=== PATIENT | female | born 2000 | race Hispanic/Latino ===

== ENCOUNTER → 2023-10-17 11:26 | Outpatient (REF) | payer OTHER, SELFPAY ==
[2023-10-17 16:46] LABS: Iron 47 ug/dl (37-170)
[2023-10-17 16:55] LABS: Percent Saturation 11 % (20-50); Total Iron Binding Capacity 426 ug/dl (265-497)
[2023-10-17 17:19] LABS: Ferritin 7.6 ng/ml (6.24-137)
== END ==
LOC: HWLAB 11:26
PROVIDERS: ATTENDING PHYSICIAN Internal Medicine Hematology & Oncology; FAMILY PHYSICIAN Pediatrics
DX: O99.019 Anemia complicating pregnancy, unspecified trimester (principal); D50.9 Iron deficiency anemia, unspecified; D51.9 Vitamin B12 deficiency anemia, unspecified; I82.4Z2 Acute embolism and thrombosis of unspecified deep veins of left distal lower extremity; D68.52 Prothrombin gene mutation
CPT/HCPCS: 36415; 82728; 83540; 83550

== ENCOUNTER 2023-11-07 21:35 | Emergency (ER) | payer OTHER, SELFPAY ==
[2023-11-07 21:38] VITALS: BP 121/84
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
[2023-11-07] MEDS: CITROMA 300 ML PO (23:14)
[2023-11-07] MEDS: MINERAL OIL 30 ML PO (23:14)
[2023-11-07 23:22] VITALS: BMI 23.8
[2023-11-08 05:14] VITALS: BP 105/54
== END 2023-11-08 05:27 | disposition home or self-care (01) ==
LOC: EMR 21:35
PROVIDERS: EMERGENCY PHYSICIAN Emergency Medicine
DX: K59.00 Constipation, unspecified (principal); R10.9 Unspecified abdominal pain; K58.9 Irritable bowel syndrome, unspecified; F41.9 Anxiety disorder, unspecified; F32.A Depression, unspecified; F43.10 Post-traumatic stress disorder, unspecified; Z86.711 Personal history of pulmonary embolism; Z98.890 Other specified postprocedural states; Z91.018 Allergy to other foods; Z88.0 Allergy status to penicillin; Z91.013 Allergy to seafood; Z88.8 Allergy status to other drugs, medicaments and biological substances; Z91.048 Other nonmedicinal substance allergy status
CPT/HCPCS: 99283; 74018

== ENCOUNTER 2024-01-09 09:44 | Emergency (ER) | payer OTHER, SELFPAY ==
[2024-01-09 09:52] VITALS: BP 114/58
--- NOTE | 2024-01-09 10:07 | ED.GENMED ---
History of Present Illness
General
Chief Complaint: Swelling
Time Seen by Provider: 01/09/24 10:05
Travel History
Have you had any contact with someone who has COVID-19?: No
Do you have any symptoms of coronavirus? Fever > 100 degrees, chills, cough, shortness of breath, sore throat, loss of taste or smell, muscle aches, or headache?: No
History of Present Illness
History of Present Illness:
HPI: Patient presents due to swelling of the left leg. She reports history of having severe left lower extremity DVT ultimately managed with thrombectomy emergently at [place]. She states she was diagnosed with factor V Leiden. This occurred after
she was /delivered 2 years ago. She is on Eliquis currently. She is known to [facility]. This pain feels similar to the time that she had the DVT in the past. She has no shortness of breath.
EXAM:
GENERAL: Well appearing in no distress
HEENT: Moist oral mucosa
CARDIOVASCULAR: No murmurs, normal heart rate, regular rhythm, No chest wall tenderness
PULMONARY: No respiratory distress, breath sounds are clear and equal
ABDOMEN: Soft with no peritoneal signs, no tenderness
NEUROLOGIC: Excellent strength all extremities, no coordination deficits
PSYCHIATRIC: Appropriate mental status, normal insight and judgement
EXTREMITIES: Mild to moderate left calf tenderness, trace left lower extremity edema, moves all extremities equally, she does walk with a slight limp
SKIN: No rash, no lesions
TIME OF INITIAL ENCOUNTER: 10:10 AM
NUMBER AND COMPLEXITY OF PROBLEMS ADDRESSED AT THE ENCOUNTER
� Chronic conditions affecting care: PE/DVT
� Acute Exacerbation and/or Progression of Chronic Illness: This is an acute problem
� Differential Diagnosis includes: DVT, cellulitis noted on exam, musculoskeletal pain
AMOUNT AND/OR COMPLEXITY OF DATA TO BE REVIEWED AND ANALYZED
� I performed an independent evaluation of and my interpretation is:
EKG: Sinus 92, normal axis, nonspecific ST abnormality
CT:
X-rays:
Laboratory Studies: CBC unremarkable
Other: Ultrasound imaging shows no evidence of DVT
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
� Clinical information was obtained by an independent historian: Spoke to the fianc� at bedside
� Prescriptions/Medications Considered but not given:
� Further testing considered but not performed:
RISK OF COMPLICATIONS AND/OR MORBIDITY OR MORTALITY OF PATIENT MANAGEMENT
� Social determinants of health affecting care: Lives at home
� Discussion with other providers: Discussed with radiology, Dr. Sterling
� Escalation of care including admission/observation vs risk of discharge considered: Ultrasound imaging shows no evidence of DVT. Patient states that her SWIM COACH is okay with her being on Eliquis as opposed to Lovenox as she had
an issue with Lovenox in the past.
Past History
Past History
ED Past Medical History: Psychiatric (Anxiety), Other (PID, pulmonary embolism, PTSD) and Other (IBS); Negative Asthma, HTN, Hypercholesterolemia or NIDDM
ED Past Surgical History: None
Social History
Tobacco: Non-smoker
Alcohol: Occasional
Drug: None
Personal: Single
Living: with family
Employment: Employed
Family History
Family History: Other (Noncontributory)
Phy Exam
Physical Exam
Physical Exam:
See HPI
Course
Orders/Labs/Results
Orders:
Orders
01/09/24 10:15
Legs, left US [US Periph Venous LOWER Ext LT] Urgent
Comment:
Reason For Exam: LLE pain prior need for emerg thrombectomy
01/09/24 11:48
ECG [Electrocardiogram (*1)] Urgent
Reason for Study: Chest Pain
01/09/24 11:49
EKG- Treatment ONCE
01/09/24 12:45
Basic Metabolic Panel Urgent
Complete Blood Count/With Diff Urgent
Abnormal Lab Results
01/09/24
12:45
MCV 79.6 L fL
(81.0-99.0)
MCH 26.7 L pg
(27.0-31.0)
RDW 15.9 H %
(11.5-14.5)
MPV 10.9 H fL
(7.4-10.4)
Carbon Dioxide 20 L mmol/L
(22-30)
BUN 18 H mg/dl
(7-17)
Creatinine 0.5 L mg/dL
(0.6-1.0)
01/09/24 12:45
01/09/24 12:45
Vital Signs
Initial and Last Documented VS:
Initial Vital Signs
Temp Pulse Resp BP Pulse Ox
98.2 F 89 16 114/58 100
01/09/24 09:52 01/09/24 09:52 01/09/24 09:52 01/09/24 09:52 01/09/24 09:52
Last Documented Vital Signs
Temp Pulse Resp BP Pulse Ox
98.2 F 82 18 121/73 99
01/09/24 09:52 01/09/24 13:31 01/09/24 13:31 01/09/24 13:31 01/09/24 13:31
*Critical Care Note
Total Time (30-74mins, 75-104mins- exclusive of procedures): Not Applicable
ED Attending Note
-
Portions of this chart may have been created with voice recognition software.� Occasional wrong word or��sound alike� substitutions may have occurred due to the inherent limitations of voice recognition software.
Discharge Plan
Departure
Prescriptions:
No Action
Eliquis 5 mg Tablet
5 mg PO BID
lactulose 10 gram/15 mL (15 mL) solution
20 g PO BID PRN (Reason: Constipation) Qty: 600 0RF
Referrals:
Lolita Degroot MD [Family Provider] -
Interventions
Interventions:
*Risk Screen - Suicide Last Done: 01/09/24 10:02
*General Assessment Last Done: 01/09/24 10:02
*Neglect/Abuse Screening Last Done: 01/09/24 10:02
ED- Fall Risk Assessment Last Done: 01/09/24 11:05
ED- Cardiac Assessment Last Done: 01/09/24 11:05
ED- Pulmonary Assessment Last Done: 01/09/24 11:05
ED-Skin Assessment Last Done: 01/09/24 11:05
Discharge Date and Time
Print Language: MALAWIAN
[2024-01-09 11:26] VITALS: BP 118/72
[2024-01-09 12:58] LABS: % Basophils 0.8 % (0-2); % Eosinophils 0.6 % (0-6); % Immature Granulocytes 0.4 % (0-0.5); % Lymphocytes 36.4 % (20.5-51.1); % Monocytes 6.4 % (1.7-9.3); % Neutrophils 55.4 % (42.2-75.2); Absolute Basophils 0.1 10^3/uL (0-0.2); Absolute Eosinophils 0.1 10^3/uL (0-0.7); Absolute Lymphocytes 3.4 10^3/uL (1.2-3.4); Absolute Monocytes 0.6 10^3/uL (0.1-0.6); Absolute Neutrophils 5.2 10^3/uL (1.4-6.5); Hematocrit 37.8 % (37.0-47.0); Hemoglobin 12.7 g/dL (12.0-16.0); Mean Corp Hgb Conc. 33.6 g/dL (33.0-37.0); Mean Corpuscular Hgb 26.7 pg (27.0-31.0); Mean Corpuscular Volume 79.6 fL (81.0-99.0); Mean Platelet Volume 10.9 fL (7.4-10.4); Nucleated Red Blood Cells % 0 %; Platelet Count 244 10^3/uL (130-400); Red Blood Cell Count 4.75 10^6/uL (4.20-5.40); Red Cell Dist. Width 15.9 % (11.5-14.5); White Blood Cell Count 9.4 10^3/uL (4.8-10.8)
[2024-01-09 13:31] VITALS: BP 121/73
[2024-01-09 13:33] LABS: Blood Urea Nitrogen 18 mg/dl (7-17); Calcium 9.6 mg/dl (8.4-10.2); Carbon Dioxide 20 mmol/L (22-30); Chloride 106 mmol/L (98-107); Glucose 95 mg/dl (70-99); Sodium 136 mmol/L (135-145); eGFR > 60.00
== END 2024-01-09 14:19 | disposition left against medical advice (07) ==
LOC: EMR 09:44
PROVIDERS: EMERGENCY PHYSICIAN Emergency Medicine; FAMILY PHYSICIAN Pediatrics
DX: M79.89 Other specified soft tissue disorders (principal); M79.605 Pain in left leg; D68.51 Activated protein C resistance; F41.9 Anxiety disorder, unspecified; F43.10 Post-traumatic stress disorder, unspecified; K58.9 Irritable bowel syndrome, unspecified; N73.9 Female pelvic inflammatory disease, unspecified; Z86.718 Personal history of other venous thrombosis and embolism; Z79.01 Long term (current) use of anticoagulants; Z91.018 Allergy to other foods; Z91.010 Allergy to peanuts; Z88.0 Allergy status to penicillin; Z91.013 Allergy to seafood; Z88.8 Allergy status to other drugs, medicaments and biological substances; Z91.048 Other nonmedicinal substance allergy status
CPT/HCPCS: 99284; 80048; 85025; 93005; 93971

== ENCOUNTER 2025-02-14 11:07 | Emergency (ER) | payer OTHER, SELFPAY ==
[2025-02-14 11:08] VITALS: BP 123/73
[2025-02-14] MEDS: TYLENOL 1000 MG PO (12:51)
[2025-02-14] MEDS: NSS 1000 IV (12:52)
[2025-02-14 13:03] LABS: Hematocrit 39.7 % (37.0-47.0); Hemoglobin 13.6 g/dL (12.0-16.0); Mean Corp Hgb Conc. 34.3 g/dL (33.0-37.0); Mean Corpuscular Volume 83.2 fL (81.0-99.0); Nucleated Red Blood Cells % 0 %; Platelet Count 165 10^3/uL (130-400); Red Cell Dist. Width 13.5 % (11.5-14.5)
[2025-02-14 13:25] LABS: Urine Character Clear (Clear)
[2025-02-14 13:30] LABS: HCG, Urine Qualitative Screen Negative
[2025-02-14 13:55] LABS: ALT (SGPT) 12 U/L (0-35); AST (SGOT) 17 U/L (14-36); Albumin 4.0 g/dl (3.5-5.0); Alkaline Phosphatase 69 U/L (38-126); Blood Urea Nitrogen 7 mg/dl (7-17); Calcium 8.9 mg/dl (8.4-10.2); Carbon Dioxide 23 mmol/L (22-30); Chloride 105 mmol/L (98-107); Glucose 91 mg/dl (70-99); Potassium 4.0 mmol/L (3.5-5.1); Sodium 134 mmol/L (135-145); Total Protein 6.7 g/dl (6.3-8.2); eGFR > 60.00
[2025-02-14 16:02] VITALS: BP 104/64
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
== END 2025-02-14 16:30 | disposition left against medical advice (07) ==
LOC: EMR 11:07
PROVIDERS: EMERGENCY PHYSICIAN Emergency Medicine; FAMILY PHYSICIAN Registered Nurse
DX: R09.81 Nasal congestion (principal); J02.9 Acute pharyngitis, unspecified; R51.9 Headache, unspecified; M43.6 Torticollis; R50.9 Fever, unspecified; M79.18 Myalgia, other site; R29.810 Facial weakness; S29.9XXA Unspecified injury of thorax, initial encounter; Y04.2XXA Assault by strike against or bumped into by another person, initial encounter; Z53.29 Procedure and treatment not carried out because of patient's decision for other reasons; Z73.3 Stress, not elsewhere classified; F41.9 Anxiety disorder, unspecified; F43.10 Post-traumatic stress disorder, unspecified; K58.9 Irritable bowel syndrome, unspecified; N73.9 Female pelvic inflammatory disease, unspecified; Z63.8 Other specified problems related to primary support group; Z79.01 Long term (current) use of anticoagulants; Z86.718 Personal history of other venous thrombosis and embolism; Z86.711 Personal history of pulmonary embolism; Z91.018 Allergy to other foods; Z91.010 Allergy to peanuts; Z88.0 Allergy status to penicillin; Z91.013 Allergy to seafood; Z88.8 Allergy status to other drugs, medicaments and biological substances; Z91.048 Other nonmedicinal substance allergy status
CPT/HCPCS: 99284; 96360; 80053; 81003; 81025; 85025; 86308; 87070; 87633; 87880